=== PATIENT | male | born 1990 | race Caucasian/White ===

== ENCOUNTER 2019-05-01 06:32 | Day surgery (SDC) | payer BC ==
[~2019-05-01 06:32] MED LIST: 50% Dextrose in Water 50 ML Syringe IVPUSH PRN; Albuterol 0.083% 2.5 MG/3 ML Neb Soln NEB PRN; Atropine 0.1 MG/ML 10 ML Syringe IVPUSH PRN; EPINEPHrine 1:10,000 1 MG/10 ML Syringe IVPUSH PRN; Lactated Ringers 1,000 ML IV SCH; Naloxone 0.4 MG/ML Syringe IVPUSH PRN; ceFAZolin 2 GM in Premix Bag 1 BAG IV ONE; fentaNYL 100 MCG/2 ML SDV IVPUSH PRN
[2019-05-01] MEDS ORDERED: Propofol 200 MG/20 ML SDV ONE (07:03)
[2019-05-01] MEDS ORDERED: fentaNYL 100 MCG/2 ML SDV ONE (07:03)
[2019-05-01] MEDS ORDERED: Midazolam 1 MG/ML 2 ML SDV ONE (07:04)
[2019-05-01] MEDS ORDERED: Lidocaine 2% 5 ML SDV ONE (07:05)
[2019-05-01] MEDS ORDERED: Bupivacaine 25%/EPINEPHrine/PF 30 ML ONE ×2 (07:21→08:09)
--- NOTE | 2019-05-01 07:21 | PCM.PREANE ---
Preanesthetic Assessment - Anesthesia/Transfusion/Family Hx Anesthesia History: No Prior Anesthesia Family History of Anesthesia Reaction: No Transfusion History: No Prior Transfusion(s) - Review of Systems General: No Symptoms Pulmonary: No Symptoms Cardiovascular: No Symptoms, Orthopnea Neurological: No Symptoms Other: Reports: None - Physical Assessment NPO Status Date: 04/29/19 NPO Status Time: 20:00 Vital Signs: Last Vital Signs Temp 96.8 F 05/01/19 06:40 Pulse 69 05/01/19 06:40 Resp 18 05/01/19 06:40 BP 120/69 05/01/19 06:40 Pulse Ox 95 05/01/19 06:40 Height: 6 ft 1 in Weight: 131.088 kg ASA Class: 2 Mental Status: Alert & Oriented x3 Airway Class: Mallampati = 2 Dentition: Reports: Normal Dentition ROM/Head Extension: Full Lungs: Clear to Auscultation, Normal Respiratory Effort Cardiovascular: Regular Rate, Regular Rhythm - Allergies Allergies/Adverse Reactions: Allergies Allergy/AdvReac Type Severity Reaction Status Date / Time No Known Allergies Allergy Verified 04/25/19 07:49 - Blood Blood Available: No - Anesthesia Plan Pre-Op Medication Ordered: None - Acknowledgements Anesthesia Type Planned: General Anesthesia Pt an Appropriate Candidate for the Planned Anesthesia: Yes Alternatives and Risks of Anesthesia Discussed w Pt/Guardian: Yes Pt/Guardian Understands and Agrees with Anesthesia Plan: Yes Additional Comments: PMH: none(listing of DM and HTN on his preop H&P is not true PLAN: mac PreAnesthesia Questionnaire HEENT History: Reports: None Cardiovascular History: Reports: None Respiratory History: Reports: None Gastrointestinal History: Reports: None Genitourinary History: Reports: None Musculoskeletal History: Reports: Fracture Other Musculoskeletal History: fx collarbone at Neurological History: Reports: None Psychiatric History: Reports: None Endocrine/Metabolic History: Reports: Obesity/BMI 30+ Hematologic History: Reports: None Immunologic History: Reports: None Oncologic (Cancer) History: Reports: None Dermatologic History: Reports: None - Past Surgical History Head Surgeries/Procedures: Reports: None HEENT Surgical History: Reports: None Cardiovascular Surgical History: Reports: None Respiratory Surgical History: Reports: None GI Surgical History: Reports: None Male Surgical History: Reports: None Endocrine Surgical History: Reports: None Neurological Surgical History: Reports: None Musculoskeletal Surgical History: Reports: None Oncologic Surgical History: Reports: None Dermatological Surgical History: Reports: None - SUBSTANCE USE Smoking Status *Q: Never Smoker Recreational Drug Use History: No - HOME MEDS Home Medications: Home Meds . [No Known Home Meds] 04/25/19 [History] - CURRENT (IN HOUSE) MEDS Current Meds: Current Medications Albuterol (Proventil Neb Soln) 2.5 mg NEB ONETIME PRN PRN Reason: Wheezing Atropine Sulfate (Atropine 0.1 Mg/Ml) 0.5 mg IVPUSH ASDIRECTED PRN PRN Reason: Hypo-perfusion Atropine Sulfate (Atropine 0.1 Mg/Ml) 1 mg IVPUSH ASDIRECTED PRN PRN Reason: Hypo-Perfusion Dextrose/Water (Dextrose 50% In Water) 50 ml IVPUSH ASDIRECTED PRN PRN Reason: Hypoglycemia Epinephrine HCl (Epinephrine 1:10,000) 1 mg IVPUSH ASDIRECTED PRN PRN Reason: ACLS Guidelines Fentanyl (Sublimaze) 50 - 100 mcg IVPUSH Q5M PRN PRN Reason: Pain Lactated Ringer's (Ringers, Lactated) 1,000 mls @ 125 mls/hr IV ASDIRECTED RADHA Last Admin: 05/01/19 07:07 Dose: 125 mls/hr Naloxone HCl (Narcan) 0.1 mg IVPUSH ASDIRECTED PRN PRN Reason: Respiratory Depression Discontinued Medications Fentanyl (Sublimaze) Confirm Administered Dose 100 mcg .ROUTE .STK-MED ONE Stop: 05/01/19 07:04 Cefazolin Sodium/Dextrose 2 gm (/ Premix) 50 mls @ 100 mls/hr IV ONETIME ONE Stop: 05/01/19 05:29 Lidocaine (Xylocaine-Mpf 2%) Confirm Administered Dose 5 ml .ROUTE .STK-MED ONE Stop: 05/01/19 07:06 Midazolam HCl (Versed 1 Mg/Ml) Confirm Administered Dose 2 mg .ROUTE .STK-MED ONE Stop: 05/01/19 07:05 Propofol (Diprivan 20 Ml) Confirm Administered Dose 200 mg .ROUTE .STK-MED ONE Stop: 05/01/19 07:04
[2019-05-01] MEDS ORDERED: ceFAZolin/Dextrose,Iso-Osmotic 2 GM/50 ML Duplex Bag IV ONE (07:56)
[2019-05-01] MEDS ORDERED: Ketamine 500 mg/10 ML MDV ONE (07:56)
--- NOTE | 2019-05-01 09:11 | PCM.OPNOTE ---
- General Post-Op/Procedure Note Date of Surgery/Procedure: 05/01/19 Operative Procedure(s): back massess excisional bx, 2X Findings: back masses X 2 excised; upper one incision 4cm, lower one incision 6 cm; [id number] Pre Op Diagnosis: back masses X 2 Post-Op Diagnosis: Same Anesthesia Technique: Moderate Sedation Primary Surgeon: Pa Ruth Pathology: sent Complications: None Condition: Good Free Text/Narrative:: Intake & Output 04/30/19 05/01/19 05/01/19 22:59 06:59 14:59 Intake Total 900 Balance 900
--- NOTE | 2019-05-01 10:42 | PCM48HPAN ---
Post Anesthesia Note - EVALUATION WITHIN 48HRS OF ANESTHETIC Vital Signs in Normal Range: Yes Patient Participated in Evaluation: Yes Respiratory Function Stable: Yes Airway Patent: Yes Cardiovascular Function Stable: Yes Hydration Status Stable: Yes Pain Control Satisfactory: Yes Nausea and Vomiting Control Satisfactory: Yes Mental Status Recovered: Yes Vital Signs: Last Vital Signs Temp 98.1 F 05/01/19 09:05 Pulse 73 05/01/19 09:30 Resp 16 05/01/19 09:30 BP 103/57 L 05/01/19 09:30 Pulse Ox 95 05/01/19 09:30
--- NOTE | 2019-05-01 10:42 | PCM.POSTAN ---
POST ANESTHESIA ASSESSMENT - MENTAL STATUS Mental Status: Alert, Oriented - VITAL SIGNS Vital Signs: Last Vital Signs Temp 98.1 F 05/01/19 09:05 Pulse 73 05/01/19 09:30 Resp 16 05/01/19 09:30 BP 103/57 L 05/01/19 09:30 Pulse Ox 95 05/01/19 09:30 - RESPIRATORY Respiratory Status: Respiratory Rate WNL, Airway Patent, O2 Saturation Stable - CARDIOVASCULAR CV Status: Pulse Rate WNL, Blood Pressure Stable - GASTROINTESTINAL GI Status: No Symptoms - POST OP HYDRATION Hydration Status: Adequate & Stable
--- NOTE | 2019-05-01 10:54 | OR ---
SURGEON: Pa Ruth MD DATE OF PROCEDURE: 05/01/2019 PREOPERATIVE DIAGNOSIS: Back mass x2. POSTOPERATIVE DIAGNOSIS: Back mass x2. PROCEDURE PERFORMED: Excision with biopsy. PRIMARY SURGEON: Pa Ruth MD. COMPLICATIONS: None. FINDINGS: There are an upper back mass and lower back mass. Both of those are whitish, cheesy, smelly sebaceous cysts. The upper one is smaller, about 2 cm. The lower one is bigger, about 4 cm. DESCRIPTION OF PROCEDURE: The patient was taken to the operating room, placed in a supine position, and then repositioned into a left decub position, left side down, right side up. The patient was then prepped and draped in a sterile fashion. Time-out was being called, the patient identified, procedure identified, antibiotic given. Procedure then started. Attention first paid to the upper back mass. Both back masses were right on the midline of the back and upper one is on the scapula angle and lower one is right at the scapula, right in the middle of the midline. Attention to the upper one first. Using a skin scalpel, a fish-mouth incision was made, and excised the whole mass and did not get into the mass. The mass was sent for pathology and oriented with a stitch at 6 o'clock. Hemostasis was achieved by using electrocautery. The wound was then closed with a horizontal stitch with 2 - 0 Ethilon. Attention now turned to the second one, which was the lower back mass, which was a little bit bigger, about a size of 3.5 to 4 cm. Again, a fish - mouth incision was made and excised the whole mass and sent for pathology and oriented with a stitch at 6 o'clock. Hemostasis achieved by use of electrocautery. After complete irrigation and using 2-0 Ethilon and also 0 nylon with 2 stitches followed by appropriate dressing. The patient was awakened, transferred to recovery room in hemodynamically stable condition. The patient tolerated the procedure well. There were no intraoperative complications. Dr. Ruth was present through the whole procedure. ALYSE / TIMBO /[id number] MTDD
== END 2019-05-01 09:42 | disposition home or self-care (01) ==
LOC: MW.SDS 06:32
PROVIDERS: ATTEND Surgery
DX: L72.0 Epidermal cyst (principal); E11.9 Type 2 diabetes mellitus without complications; I10 Essential (primary) hypertension; E66.9 Obesity, unspecified; Z68.38 Body mass index [BMI] 38.0-38.9, adult
CPT/HCPCS: 11404; 11406; 88304; J0690; J2001; J2250; J2704; J3010; J7120; 00300